=== PATIENT | male | born 1965 | race Caucasian/White ===

== ENCOUNTER 2025-03-02 17:09 | Inpatient (IN) | payer OTHER, SELFPAY ==
[~2025-03-02 17:09] MED LIST: Iopamidol-370 76% 500 ML MDV (1 ML CHARGE) ONE
[2025-03-02] MEDS ORDERED: Pantoprazole 40 MG VIAL ONE (17:45)
[2025-03-02 17:57] LABS: #Basophils 0.03 10x3/uL (0.0-0.2); #Eosinophils Less than 0.03 10x3/uL (0.0-0.7); #Monocytes 0.82 10x3/uL (0.11-0.59); #Neutrophils 15.43 10x3/uL (1.40-6.50); %Basophils 0.2 % (0.0-1.0); %Eosinophils 0.1 % (0.0-10.0); %Lymphocytes 6.4 % (21.0-51.0); %Monocytes 4.6 % (0.0-10.0); %Neutrophils 87.2 % (42.0-75.0); Hematocrit 47.0 % (42.0-52.0); Hemoglobin 13.9 g/dL (14.0-18.0); Mean Corpuscular Hemoglobin 22.9 pg (27.0-31.0); Mean Corpuscular Volume 77.4 fL (78.0-98.0); Platelet Count 413 10x3/uL (130-400); Red Blood Cell (RBC) Count 6.07 mill/uL (4.70-6.10); White Blood Cell (WBC) Count 17.70 10x3/uL (4.8-10.8)
[2025-03-02 18:16] LABS: ALT (SGPT) 49 U/L (Less than 45); AST (SGOT) 135 U/L (11-34); Albumin 2.0 g/dL (3.1-4.5); Alkaline Phosphatase 495 U/L (40-110); Anion Gap 23 mmol/L (10-20); BUN (Urea Nitrogen) 24 mg/dL (8.4-25.7); Bilirubin, Total 4.2 mg/dL (0.3-1.2); CK (CPK) 298 U/L (30-200); Calc. Creatinine Clearance 0 mL/min (70-130); Calcium 9.2 mg/dL (7.8-10.44); Carbon Dioxide 19 mmol/L (22-29); Chloride 91 mmol/L (98-107); Globulin 4.7 g/dL (2.4-3.5); Glucose 82 mg/dL (70-105); Lipase 15 U/L (8-78); Potassium 4.5 mmol/L (3.5-5.1); Sodium 128 mmol/L (136-145)
[2025-03-02 18:19] LABS: INR-International Normal Ratio 1.3; Prothrombin Time 16.2 sec (12.0-14.7)
[2025-03-02 18:20] LABS: PTT 37.5 sec (22.9-36.1)
[2025-03-02] MEDS ORDERED: Dexamethasone 10 MG/ML VIAL ONE (18:57)
[2025-03-02] MEDS ORDERED: LevoFLOXacin 750 mg/D5W 150 ml Premix Bag ONE (18:57)
[2025-03-02] MEDS ORDERED: Cefepime 2 GM VIAL ONE (18:57)
[2025-03-02 19:19] LABS: Actual Bicarbonate (HCO3v) 19.0 mEq/L (22-28); Base Excess -4.4 mEq/L (-2.0 to +3.0); Calcium, Ionized (venous) 1.00 mmol/L (1.16-1.32); Chloride (VBG) 97 mmol/L (98-106); Hematocrit-VBG 35 % (42.0-52.0); Hemoglobin (Hb) 12.0 g/dL (13.1-17.2); Potassium (VBG) 3.75 mmol/L (3.70-5.30); Sodium 128 mmol/L (133-146)
[2025-03-02] MEDS ORDERED: VANCOMYCIN 2 GRAM/400 ML BAG ONE (20:40)
[2025-03-02 21:10] LABS: Bacteria/HPF None Seen HPF (None Seen); CAUTI Indications for Culture Pelvic or flank pain; Glucose, Urine (Dipstick) Normal (Negative); Leukocyte Negative Leu/uL (Negative); Protein, Urine (Dipstick) 20 mg/dL (Neg-Trace); RBC/HPF 21-50 HPF (0-3); Specific Gravity, Urine 1.020 (1.002-1.036); WBC/HPF 0-3 HPF (0-3)
[2025-03-02 21:13] LABS: Urine Culture Reflex No No
[2025-03-02] MEDS ORDERED: Ondansetron PF 4 MG/2 ML Vial IVP PRN (23:52)
[2025-03-03] MEDS: VANCOMYCIN 2 GRAM/400 ML Premix BAG IVPB SCH (01:29)
[2025-03-03 02:20] VITALS: BMI 25.1
[2025-03-03] MEDS: Albumin 25% 25 GM (100 mL) BOT IVPB SCH ×2 (02:38→05:40)
[2025-03-03 05:24] LABS: ALT (SGPT) 39 U/L (Less than 45); AST (SGOT) 139 U/L (11-34); Albumin 1.4 g/dL (3.1-4.5); Alkaline Phosphatase 321 U/L (40-110); Anion Gap 21 mmol/L (10-20); BUN (Urea Nitrogen) 24 mg/dL (8.4-25.7); Bilirubin, Total 3.0 mg/dL (0.3-1.2); Calc. Creatinine Clearance 87 mL/min (70-130); Calcium 7.7 mg/dL (7.8-10.44); Carbon Dioxide 14 mmol/L (22-29); Chloride 98 mmol/L (98-107); Globulin 3.6 g/dL (2.4-3.5); Glucose 68 mg/dL (70-105); Magnesium 2.0 mg/dL (1.6-2.6); Potassium 4.1 mmol/L (3.5-5.1); Sodium 129 mmol/L (136-145)
[2025-03-03 05:44] LABS: #Basophils Less than 0.03 10x3/uL (0.0-0.2); #Eosinophils Less than 0.03 10x3/uL (0.0-0.7); #Monocytes 0.56 10x3/uL (0.11-0.59); #Neutrophils 13.54 10x3/uL (1.40-6.50); %Basophils 0.1 % (0.0-1.0); %Eosinophils 0.0 % (0.0-10.0); %Lymphocytes 6.0 % (21.0-51.0); %Monocytes 3.7 % (0.0-10.0); %Neutrophils 88.6 % (42.0-75.0); Hematocrit 36.1 % (42.0-52.0); Hemoglobin 10.7 g/dL (14.0-18.0); Mean Corpuscular Hemoglobin 23.3 pg (27.0-31.0); Mean Corpuscular Volume 78.5 fL (78.0-98.0); Platelet Count 308 10x3/uL (130-400); Red Blood Cell (RBC) Count 4.60 mill/uL (4.70-6.10); White Blood Cell (WBC) Count 15.29 10x3/uL (4.8-10.8)
[2025-03-03] MEDS: Pantoprazole 40 MG VIAL IVP SCH (09:34)
[2025-03-03] MEDS: Mupirocin 1 GM TUBE NASAL DECOLONIZATION NASAL SCH (09:34)
[2025-03-03] MEDS: Melatonin 3 MG TAB PO SCH (21:25)
[2025-03-04 09:50] VITALS: TEMP 97.5
[2025-03-04] MEDS ORDERED: Lidocaine 1% w/Epinephrine 1:100K 20 ML VIAL ONE (13:33)
[2025-03-04] MEDS ORDERED: Sodium Bicarbonate 2.5 MEQ/5 ML SDV ONE (13:56)
[2025-03-04 15:33] VITALS: BMI 25.4
[2025-03-04 16:56] LABS: RBC Count-Automated (BF) 169 /cu.mm; WBC/Nucleated-Auto (BF) 19 /cu.mm
[2025-03-04 17:25] LABS: BF Segmented Neutrophils 41 %; Cell Count Non Hematic 25 %
== END 2025-03-04 18:00 | disposition hospice, home (50) | DRG 374 ==
LOC: ERS 17:09 → IMCU/EMU 23:55
PROVIDERS: ADMIT Internal Medicine; ATTEND Student in an Organized Health Care Education/Training Program
PROC: 3E03329 Introduction of Other Anti-infective into Peripheral Vein, Percutaneous Approach (ICD-10-PCS; 2025-03-02)
PROC: 30233J1 Transfusion of Nonautologous Serum Albumin into Peripheral Vein, Percutaneous Approach (ICD-10-PCS; 2025-03-03)
PROC: 0W9G3ZZ Drainage of Peritoneal Cavity, Percutaneous Approach (ICD-10-PCS; principal; 2025-03-04)
PROC: 0W9G30Z Drainage of Peritoneal Cavity with Drainage Device, Percutaneous Approach (ICD-10-PCS; 2025-03-04)
PROC: 0D9670Z Drainage of Stomach with Drainage Device, Via Natural or Artificial Opening (ICD-10-PCS; 2025-03-04)
PROC: 0T9B70Z Drainage of Bladder with Drainage Device, Via Natural or Artificial Opening (ICD-10-PCS; 2025-03-04)
DX: C18.9 Malignant neoplasm of colon, unspecified (principal); K55.049 Acute infarction of large intestine, extent unspecified; R65.11 Systemic inflammatory response syndrome (SIRS) of non-infectious origin with acute organ dysfunction; K56.609 Unspecified intestinal obstruction, unspecified as to partial versus complete obstruction; C78.7 Secondary malignant neoplasm of liver and intrahepatic bile duct; R18.8 Other ascites; N17.9 Acute kidney failure, unspecified; E87.1 Hypo-osmolality and hyponatremia; E87.20 Acidosis, unspecified; J91.8 Pleural effusion in other conditions classified elsewhere; D49.0 Neoplasm of unspecified behavior of digestive system; K63.89 Other specified diseases of intestine; Z51.5 Encounter for palliative care; Z66 Do not resuscitate; K72.90 Hepatic failure, unspecified without coma; G25.81 Restless legs syndrome; Z87.891 Personal history of nicotine dependence; Z98.890 Other specified postprocedural states; F41.9 Anxiety disorder, unspecified; K59.00 Constipation, unspecified; Z79.899 Other long term (current) drug therapy; D64.9 Anemia, unspecified
CPT/HCPCS: 36415; 36416; 49020; 49083; 51702; 51798; 71045; 74018; 74177; 80053; 81001; 82140; 82550; 82805; 83605; 83690; 83735; 84145; 85025; 85060; 85610; 85730; 86850; 86900; 86901; 87040; 87070; 87205; 89051; 93005; 96365; 96367; 96375; J0692; J1100; J1956; J2250; J2470; J2543; J3010; J3375; J7030; P9047; Q9967